=== PATIENT | female | born 1950 | race Caucasian/White ===

== ENCOUNTER 2020-06-26 22:11 | Emergency (ER) | payer OTHER, BC ==
[~2020-06-26] VITALS: Ht 152.4 cm; Wt 61.7 kg
[2020-06-26 22:21] VITALS: Ht 152.4 cm; Wt 61.7 kg
[2020-06-26 23:19] VITALS: BP 148/95
== END 2020-06-26 23:19 | disposition home or self-care (01) ==
LOC: ED 22:11
DX: S60.445A External constriction of left ring finger, initial encounter (principal); X58.XXXA Exposure to other specified factors, initial encounter; Y93.89 Activity, other specified; Y92.89 Other specified places as the place of occurrence of the external cause; Y99.8 Other external cause status